=== PATIENT | female | born 1940 | race Caucasian/White ===

== ENCOUNTER → 2019-06-25 14:09 | Outpatient (CLI) | payer MEDICARE, SELFPAY ==
--- NOTE | 2019-06-25 | DI.US.S_ITS ---
PROCEDURE: US SOFT TISSUE HEAD AND NECK INDICATIONS: LEFT SUPRACLAVICULAR LUMPS TECHNIQUE: Real-time scanning was performed of the neck region of interest, with image documentation. COMPARISON: None. FINDINGS: Several prominent lymph nodes are seen within the area of clinical concern of the left neck, with the largest being 2.9 x 2.8 x 1.9 cm and 1.4 x 1.5 x 1.3 cm. Increased vascularity can be seen within these lymph nodes. Normal fatty ez are not seen. IMPRESSION: Abnormal lymph nodes are seen, which are highly worrisome for metastatic disease in a patient of this age (although differential diagnosis includes lymphoma). Please consider a dedicated soft tissue neck protocol CT with IV contrast for further evaluation (assuming that there is no contraindication). Dictated by: Axel Moore M.D. on 06/25/2019 at 16:19 Approved by: Axel Moore M.D. on 06/25/2019 at 16:20
--- NOTE | 2019-06-25 14:17 | DI.RAD.S_ITS ---
PROCEDURE: XR CHEST 2V INDICATIONS: cervical lymphadenopathy TECHNIQUE: 2 views of the chest were acquired. COMPARISON: None. FINDINGS: Surgical changes and devices: None. Lungs and pleura: Mild pulmonary hyperexpansion is evident with flattening of the diaphragms and increased lucency within the retrosternal clear space. No large effusion or pneumothorax is evident. There may be mild scarring within the right lung apex. There is groundglass attenuation within the right medial infrahilar region and diffusely throughout the right lung. No definite area of pulmonary consolidation is appreciated. Mediastinum: Mediastinal contours are normal. Heart size is normal. There may be mild aortic atherosclerosis. Bones and chest wall: No suspicious bony abnormalities. Mild degenerative changes of the spine are present. Soft tissues appear unremarkable. IMPRESSION: 1. Vague groundglass attenuation within the right lung is nonspecific and may represent atypical pneumonia or pulmonary edema. The need for better characterization utilizing CT of the chest may be determined clinically. 2. Pulmonary hyperexpansion suggestive of chronic obstructive pulmonary disease. Dictated by: David Obando M.D. on 06/25/2019 at 13:50 Approved by: David Obando M.D. on 06/25/2019 at 13:53
[2019-06-25 15:01] LABS: Add Manual Diff / Slide Review NO; Basophils Absolute Auto 100 /uL (0-100); Basophils Percent Auto 1.3 % (0-2); Eosinophils Absolute Auto 300 /uL (0-450); Hematocrit 39.7 % (36-46); Hemoglobin 13.2 g/dL (12.0-16.0); Lymphocytes Absolute Auto 1800 /uL (1100-4500); Lymphocytes Percent Auto 31.9 % (25-40); Mean Corpuscular HGB Conc 33.3 % (30-36); Mean Corpuscular Hemoglobin 31.1 PG (26-34); Mean Corpuscular Volume 93.4 fL (80-100); Monocytes Absolute Auto 600 /uL (0-900); Neutrophils Absolute Auto 2900 /uL (1500-7000); Neutrophils Percent Auto 50.8 % (50-75); Platelet Count 323 X10^3/uL (150-400); Red Blood Cell Count 4.25 X10^6/uL (4.0-5.2); Red Cell Distribution Width 14.1 % (11.6-14.8); White Blood Cell Count 5.7 X10^3/uL (4.5-11.0)
[2019-06-25 15:12] LABS: Alanine Aminotransferase 17 IU/L (9-52); Albumin 4.4 g/dL (3.5-5.0); Albumin Globulin Ratio 1.5 (1.0-2.8); Alkaline Phosphatase 79 U/L (38-126); Aspartate Aminotransferase 29 IU/L (14-36); BUN Creatinine Ratio 6.7 (6-22); Bilirubin Total 0.5 mg/dL (0.2-1.3); Blood Urea Nitrogen 4 mg/dL (7-17); Calcium 9.6 mg/dL (8.4-10.2); Carbon Dioxide 29 mmol/L (22-32); Chloride 104 mmol/L (98-107); Estimated Glomerular Filt Rate > 60.0 mL/min (>60); Globulin 2.9 g/dL (1.7-4.1); Glucose 93 mg/dL (80-110); HEMOLYSIS < 15 (0-50); Potassium 4.4 mmol/L (3.4-5.1); Sodium 142 mmol/L (137-145); Total Protein 7.3 g/dL (6.3-8.2)
== END ==
PROVIDERS: Family Provider Physician Assistant; PCP Physician Assistant; Visit Provider Nurse Practitioner Family
DX: R59.0 Localized enlarged lymph nodes (principal); F17.200 Nicotine dependence, unspecified, uncomplicated
CPT/HCPCS: 36415; 71046; 76536; 80053; 85025

== ENCOUNTER → 2019-06-25 16:53 | Outpatient (CLI) | payer MEDICARE, SELFPAY ==
--- NOTE | 2019-06-25 16:55 | DI.CT.S_ITS ---
PROCEDURE: CT SOFT TISSUE NECK W CON INDICATIONS: abnormal US, lymph nodes TECHNIQUE: After the administration of intravenous contrast, 3.0 mm axial sections acquired from the sella to the aortic arch. Additional oblique axial 3.0 mm sections acquired through the pharynx. 3 mm thick coronal and sagittal reformats were generated. For radiation dose reduction, the following was used: automated exposure control. COMPARISON: [facility], US, US SOFT TISSUE HEAD AND NECK, 06/25/2019, 14:34. FINDINGS: Image quality: Excellent. Lymph nodes: There are 2 adjacent left supraclavicular lymph nodes which are pathologically enlarged, measuring 18 mm short axis and 13 mm short axis. There is an adjacent left level IV cervical lymph node measuring 12 mm short axis. Vessels: Visualized vasculature appears patent. Neck spaces: The oropharynx, nasopharynx, and pharynx demonstrate no mucosal lesions. The vocal cords, false vocal cords, pyriform sinuses, epiglottis, vallecula, and tongue base all appear normal. Extramucosal spaces appear unremarkable. Glands: The parotid and submandibular glands appear normal. Thyroid gland is within normal limits. Miscellaneous: Visualized brain and orbits appear normal. Lung apices appear clear. Superficial soft tissues appear normal. Bones: No suspicious bony lesions. Right maxillary sinus retention cyst is present. Visualized sinuses and mastoids otherwise appear unremarkable. IMPRESSION: Multiple pathologically enlarged lymph nodes within the left neck, suggestive of lymphoma or metastatic disease. These lymph nodes would likely be amenable to percutaneous sampling under sonographic guidance. Dictated by: Ailin Redd M.D. on 06/25/2019 at 17:17 Approved by: Ailin Redd M.D. on 06/25/2019 at 17:21
--- NOTE | 2019-07-16 14:09 | ONC.MSW ---
Description: New Patient Navigation T/C Activity: Called pt to introduce myself as the SENIOR ENGINEERING TECHNICIAN/VERONICA, explain navigation services and relay that we have received her referral and are working on scheduling her. Confirmed that she is scheduled for a biopsy tomorrow, 07/17 with [facility]. She expresses no immediate needs or concerns. Explained that she will be hearing from our schedulers soon to confirm her consult appt day/time.
== END ==
PROVIDERS: Family Provider Physician Assistant; PCP Physician Assistant; Visit Provider Nurse Practitioner Family
DX: R59.0 Localized enlarged lymph nodes (principal); R93.89 Abnormal findings on diagnostic imaging of other specified body structures; F17.200 Nicotine dependence, unspecified, uncomplicated
CPT/HCPCS: 36415; 70491; 71046; 76536; 80053; 85025; Q9967

== ENCOUNTER → 2019-07-17 08:59 | Outpatient (CLI) | payer MEDICARE, SELFPAY ==
--- NOTE | 2019-07-17 | DI.US.S_ITS ---
PROCEDURE: US FINE NEEDLE ASPIRATION INDICATIONS: ENLARGED LEFT SUPRACLAVICULAR LYMPH NODE TECHNIQUE: The indications, alternatives, benefits, risks, and complications of the procedure were explained to the patient. Written informed consent was obtained and placed in the chart. The area of interest was examined sonographically and a site was chosen for ultrasound guided percutaneous sampling. The skin was prepared and draped in the usual fashion, and anesthetized with 1% lidocaine infiltrated from the skin down to the lesion. Multiple passes were then performed, with contents emptied into an appropriate pathology specimen container. A bandage was applied to the area of access at completion of the study. COMPARISON: None. FINDINGS: Location(s) of lesion(s) sampled: Left supraclavicular lymph node Nebo: 25 and 22 gauge hypodermic needles. Number of passes: 8 Medications: 1% lidocaine for local anaesthesia. Complications: None. IMPRESSION: Successful ultrasound-guided left supraclavicular lymph node fine needle aspiration, with cytology results pending. Dictated by: Domenico Dunn M.D. on 07/17/2019 at 12:18 Approved by: Domenico Dunn M.D. on 07/17/2019 at 12:18
--- NOTE | 2019-07-17 | PATH_ITS ---
Note [facility] Accession Number: [id number] TESTS RESULT FLAG UNITS REF RANGE LAB Clinician Provided Cytology Information No. of containers..01 ThinPrep Vial No. of containers..08 Previously Prepared Cytology Slide [A] 01 LEFT SUPRACLAVICULAR DIAGNOSIS: [A] 02 LEFT SUPRACLAVICULAR POSITIVE FOR MALIGNANT CELLS, CONSISTENT WITH ADENOCARCINOMA OF GASTROINTESTINAL/HEPATOBILIARY ORIGIN; SEE COMMENT. COMMENT: Cytological preparations and cell block slides show tight clusters of epithelioid cells with high nuclear:cytoplasmic volume ratios, in a background of small lymphocytes. The malignant cell clusters are positive for MIL, CK7, CK20, villin, CDX2 (rare, weak) and SATB2 (variable, weak) immunoreactivity, and are negative for immunohistochemical markers for lung (TTF-1, Napsin A), squamous (p40, CK5/6), and breast (KRISTAN-3, mammaglobin) phenotype; all control stains show appropriate activity. Please note that given alcohol fixation, false negative results cannot be excluded. This immunophenotype is consistent with adenocarcinoma of gastrointestinal or pancreatohepatobiliary origin. Correlation with clinical, imaging, and endoscopic findings remains the best method for determining the primary site. As part of routine manager quality systems, Dr. Galicia has reviewed this case and agrees with the interpretation above. The preliminary finding of adenocarcinoma was reported to Rosalba Tinajero via her MA, CJ, by Dr. Desir on 07/22/2019 at 4:35 PM. Pathologist ICD10: 02 C77.9 01 CONCERNED FOR METASTATIC CA, NO KNOWN PRIMARY 02 Dann Desir MD, PhD, Pathologist NPI- [id number] Wayne Moctezuma, Plant Mechanic ([facility]) 01 30 CC, PINK, HAZY /VDU 07/18/2019 0648 Local FLAG LEGEND: L-Low Normal,H-High Normal,LL-Alert Low,HH-Alert High <-Panic Low,>-Panic High,A-Abnormal,AA-Critical Abnormal Performed at: 01 =Z [facility] [address] [place] [address] [address], [place] [address] Jarad Sullivan MD, 02 [facility] [address] [address] Zabrina Galicai MD, Performed at: 01 [facility] [address], [place], [place] [id number] MD Jarad Sullivan MD Phone: [phone]
--- NOTE | 2019-07-23 11:32 | ONC.MSW ---
Description: Initial Navigation T/C Activity: So Dickey called this INFORMATION SYSTEMS PROFESSOR asking about why pt had not yet been scheduled, and that pt's mass has grown significantly since she provided us the referral. INFORMATION SYSTEMS PROFESSOR was able to work with schedulers to obtain an urgent appt. for this , 07/25 at 10:20, with a 10:00 check-in time. Called pt and provided this appt. info, as well as introduced myself as the Navigator and explained my role. Will plan to meet with her f/f prior to her appt.
== END ==
PROVIDERS: Family Provider Physician Assistant; PCP Physician Assistant; Visit Provider Nurse Practitioner Family
DX: C80.1 Malignant (primary) neoplasm, unspecified (principal); C77.3 Secondary and unspecified malignant neoplasm of axilla and upper limb lymph nodes
CPT/HCPCS: 10005

== ENCOUNTER → 2019-08-14 11:30 | Oncology outpatient (ONC) | payer MEDICARE, SELFPAY ==
[2019-07-25 11:04] VITALS: BP 132/81; PULSE 71; RESP 16; TEMP 36.9; O2SAT 97
--- NOTE | 2019-07-25 11:26 | P.CONONC_ITS ---
History of Present Illness - Data of Consult Patient: new to practice Consult date: 07/25/19 Requesting Physician: Estelle Dickey PA-C Primary Care Provider: Estelle Dickey PA-C - Consult Narrative Reason for consult: Left neck lymphnode metastatic cancer, GI origin. Narrative: Erica Nance is a 78 year old female. In late May or early Jun, her massage therapist noted tender lumps in her left neck. On o1. she went to see Rosalba REYES. She then underwent US Neck that showed abnormal lymph nodes highly worrisome for metastatic disease. CT showed multiple pathologically enlarged lymph nodes within the left neck, suggestive of lymphoma or metastatic. On 07/17/2019, she underwent US guided FNA of left supraclavicular node. The cytology was positive for malignant cells consistent with adenocarcinoma of gastrointestinal or hepatobiliary origin. She admits that she has had uncomfortable stomach. She said it hurts when eating. She denies nausea or vomiting. Her weight has been stable. She has left sided pain in her shoulder blade. She denies blood in the stool or blood in the urine. She denies any headache. CC: Kip Cutler MD Home Medications and Allergies Home Medications Medication Instructions Recorded Confirmed Type No Known Home Medications 06/25/19 06/25/19 History Allergies Allergy/AdvReac Type Severity Reaction Status Date / Time No Known Allergies Allergy Uncoded 07/23/19 07:52 Medical History - Medical, Surgical, Family History Medical History: Medical History (Last Updated 06/26/19 @ 15:01 by AMY Rios) Allergy Onset Date: 1949 Chlamydia Onset Date: 1969 Chronic sore throat Onset Date: 2017 Generalized headaches Onset Date: 1989 Genital warts Onset Date: 1969 Hepatitis B Onset Date: 1952 Herpes Onset Date: 1979 Hypothyroidism Onset Date: 1951 Measles Onset Date: 1943 Substance abuse Onset Date: 1961 Supraclavicular lymphadenopathy Onset Date: 05/2019 Surgical History: Surgical History Status post appendectomy Status post cholecystectomy - Social History Smoking Status: Never smoker Review of Systems - Patient Self-Reported Symptoms SR ears, nose, mouth, throat issues: Swollen glands All systems PM: reviewed and no additional remarkable complaints except as stated Exam Vital signs: Vital Signs Temp Pulse Resp BP Pulse Ox 07/25/19 11:04 98.4 F 71 16 132/81 97 Intake and Output 07/24/19 07/25/19 07/25/19 23:59 07:59 15:59 Other: Weight 52.9 kg Patient Weight 07/25/19 23:59 Weight 52.9 kg - Constitutional positive no acute distress, positive average body habitus, positive cooperative - Routine HEENT Exam Head: Present: normocephalic, atraumatic Eye: Present: EOMI, PERRL, normal accommodation. Absent: conjunctival icterus ENT: Present: mucous membranes moist - Routine Neck Exam Present: supple, lymphadenopathy (left level II and III matted lymph nodes. ). Absent: thyromegaly - Routine Chest/Breast/Axilla Exam Axillae: Absent: lymphadenopathy - Routine Respiratory Exam Present: Clear to auscultation bilaterally. Absent: wheezes - Routine Cardiovascular Exam Present: RRR, S1, S2. Absent: murmur, gallop, rubs - Routine Abdominal Exam Present: soft, tenderness (mild, epigastric). Absent: organomegaly - Routine Extremities Exam Absent: edema - Routine Neurological Exam Present: alert, oriented X3, CN II-XII intact. Absent: sensory deficit, motor deficit - Routine Psychiatric Exam Present: normal affect, normal thought process Results - Labs Laboratory Last Values WBC 4.7 X10^3/uL (4.5-11.0) 07/26/19 08:23 RBC 4.17 X10^6/uL (4.0-5.2) 07/26/19 08:23 Hgb 12.9 g/dL (12.0-16.0) 07/26/19 08:23 Hct 38.8 % (36-46) 07/26/19 08:23 MCV 93.0 fL (80-100) 07/26/19 08:23 MCH 30.9 PG (26-34) 07/26/19 08:23 MCHC 33.2 % (30-36) 07/26/19 08:23 RDW 13.9 % (11.6-14.8) 07/26/19 08:23 Plt Count 382 X10^3/uL (150-400) 07/26/19 08:23 Neut % (Auto) 65.7 % (50-75) 07/26/19 08:23 Lymph % (Auto) 18.6 % (25-40) L 07/26/19 08:23 Billings % (Auto) 9.2 % (3-14) 07/26/19 08:23 Eos % (Auto) 5.5 % (2-4) H 07/26/19 08:23 Baso % (Auto) 1.0 % (0-2) 07/26/19 08:23 Neut # (Auto) 3100 /uL (6936-1851) 07/26/19 08:23 Lymph # (Auto) 900 /uL (8031-4733) L 07/26/19 08:23 Billings # (Auto) 400 /uL (0-900) 07/26/19 08:23 Eos # (Auto) 300 /uL (0-450) 07/26/19 08:23 Baso # (Auto) 0 /uL (0-100) 07/26/19 08:23 Sodium 140 mmol/L (137-145) 07/26/19 08:23 Potassium 3.1 mmol/L (3.4-5.1) L 07/26/19 08:23 Chloride 99 mmol/L (98-107) 07/26/19 08:23 Carbon Dioxide 30 mmol/L (22-32) 07/26/19 08:23 BUN 8 mg/dL (7-17) 07/26/19 08:23 Creatinine 0.60 mg/dL (0.52-1.04) 07/26/19 08:23 Estimated GFR > 60.0 mL/min (>60) 07/26/19 08:23 BUN/Creatinine Ratio 13.3 (6-22) 07/26/19 08:23 Glucose 126 mg/dL (80-110) H 07/26/19 08:23 Calcium 9.6 mg/dL (8.4-10.2) 07/26/19 08:23 Total Bilirubin 0.4 mg/dL (0.2-1.3) 07/26/19 08:23 AST 27 IU/L (14-36) 07/26/19 08:23 ALT 11 IU/L (9-52) 07/26/19 08:23 Alkaline Phosphatase 62 U/L (38-126) 07/26/19 08:23 Lactate Dehydrogenase 489 U/L (313-618) 07/26/19 08:23 Total Protein 6.8 g/dL (6.3-8.2) 07/26/19 08:23 Albumin 4.0 g/dL (3.5-5.0) 07/26/19 08:23 Globulin 2.8 g/dL (1.7-4.1) 07/26/19 08:23 Albumin/Globulin Ratio 1.4 (1.0-2.8) 07/26/19 08:23 Carcinoembryonic Ag 36.7 ng/mL (0.1-3.0) H 07/26/19 08:23 CA 19-9 Antigen 239 U/mL (< 34) H 07/26/19 08:23 Assessment and Plan (1) Cancer of unknown origin Before I had time to explain to patient about what is going on, patient said that whatever the cancer is, she is determined that she would not want to do anything. She does not want to undergo chemotherapy especially. No other tests she would like to do. She said she has has a wonderful life. And there is no point of prolonging the inevitable. She would like to have a palliative care. I talked with her that I would agree with her, but at least we need to know what type of cancer we are dealing with. I talked with her that some of the cancers may be treatable and even curable with modern therapies. I explained to her that at present we have variety of different approaches including immunotherapy , targeted therapy or traditional chemotherapy. Patient finally agrees that she would like some minimal tests. Plan: 1. CBC, CMP, LDH, CEA, CA19-9, 2. PET CT 3. Guardian 360 4. RTC in 3 weeks
[2019-07-26 09:15] LABS: Add Manual Diff / Slide Review NO; Basophils Absolute Auto 0 /uL (0-100); Eosinophils Absolute Auto 300 /uL (0-450); Eosinophils Percent Auto 5.5 % (2-4); Hematocrit 38.8 % (36-46); Hemoglobin 12.9 g/dL (12.0-16.0); Lymphocytes Absolute Auto 900 /uL (1100-4500); Lymphocytes Percent Auto 18.6 % (25-40); Mean Corpuscular HGB Conc 33.2 % (30-36); Mean Corpuscular Hemoglobin 30.9 PG (26-34); Monocytes Absolute Auto 400 /uL (0-900); Monocytes Percent Auto 9.2 % (3-14); Neutrophils Absolute Auto 3100 /uL (1500-7000); Neutrophils Percent Auto 65.7 % (50-75); Platelet Count 382 X10^3/uL (150-400); Red Blood Cell Count 4.17 X10^6/uL (4.0-5.2); Red Cell Distribution Width 13.9 % (11.6-14.8); White Blood Cell Count 4.7 X10^3/uL (4.5-11.0)
[2019-07-26 09:36] LABS: Alanine Aminotransferase 11 IU/L (9-52); Albumin Globulin Ratio 1.4 (1.0-2.8); Alkaline Phosphatase 62 U/L (38-126); Aspartate Aminotransferase 27 IU/L (14-36); BUN Creatinine Ratio 13.3 (6-22); Bilirubin Total 0.4 mg/dL (0.2-1.3); Blood Urea Nitrogen 8 mg/dL (7-17); Calcium 9.6 mg/dL (8.4-10.2); Carbon Dioxide 30 mmol/L (22-32); Chloride 99 mmol/L (98-107); Estimated Glomerular Filt Rate > 60.0 mL/min (>60); Globulin 2.8 g/dL (1.7-4.1); Glucose 126 mg/dL (80-110); HEMOLYSIS < 15 (0-50); Lactate Dehydrogenase 489 U/L (313-618); Potassium 3.1 mmol/L (3.4-5.1); Sodium 140 mmol/L (137-145); Total Protein 6.8 g/dL (6.3-8.2)
[2019-07-26 10:07] LABS: Carcinoembryonic Antigen 36.7 ng/mL (0.1-3.0)
--- NOTE | 2019-07-29 09:04 | ONC.SCHED ---
Patient came in and is not willing to go through with PET scan, only interested in palliative care at this point, willing to give blood will purse 360 testing if beneficial. Jessica is aware and will talk to Dr. Cutler.
--- NOTE | 2019-07-29 16:19 | PC.NURSE ---
BIOPSY: Denise Dickey's office (PA) called to inform that per So Dickey that the biopsy of patient was done by radiology not by [facility] as previously told.
--- NOTE | 2019-07-30 12:26 | PC.NURSE ---
RE GUARDANT 360: This nurse called patient to schedule lab draw with us and explained that simple peripheral draw of 2 tubes would be done at [facility]. Also that she would need to sign an ABN which states that she could be charged up to $3500 but that the test company would first be calling her to let her know what financial assistance they could provide and what part she would be expected to pay, giving her the option to still cancel the test if she does not wish it after knowing exactly what she would be financially responsible for. Patient stated that at her visit with Dr. Cutler she had entertained the possibility of this test, but with further consideration she has decided that she does not want to do it ([facility] She told me that she also turned down the PET scan. FYI with this note to Dr. Cutler.
[2019-07-30 15:20] LABS: Cancer (Carbohydrate) Ag 19-9 239 U/mL (< 34)
--- NOTE | 2019-08-08 15:09 | ONC.SCHED ---
Left msg to get patient scheduled again for PET scan and to let her know per Jessica that there is an RX here for her to pickup in the box.
--- NOTE | 2019-08-12 11:36 | ONC.SCHED ---
left msg. for patient regarding her RX being here per Jessica.
--- NOTE | 2019-08-14 12:04 | PC.NURSE ---
Pt became light headed and weak during blood draw. Triage nurse asked for water and cold wash cloth. Pt transferred with help to chair in infusion room and was laid down. BP was low, and pt was conscience and talking during episode and was able to help us transfer her to chair. Dr. Quan was notified. No new orders. Pt VSS BP 118/61, P 50, O2 99. Pt resting and having orange juice, and stable.
--- NOTE | 2019-08-14 12:47 | PC.NURSE ---
Pt stable upon discharge
--- NOTE | 2019-08-26 15:54 | PC.NURSE ---
Addendum entered by Diana Beach 08/26/19 16:00: marine diesel mechanic was drawing the lab, Barry assisted the patient with Magui to the infusion chair. Addendum entered by Diana Beach 08/26/19 15:56: correction, RN who did the lab draw was Barry Garcia RN Original Note: patient was scheduled for a 'send-out' lab, guardant 360. patient had labs drawn by RNmagui at the cancer center. this is a late entry of that lab draw.
--- NOTE | 2019-08-28 11:36 | ONC.SCHED ---
Patient called and cancelled her apt. with Dr. Cutler stating also that she cancelled her PET scan. She said she doesn't want to go with Dr. Cutler's plan and didn't want to reschedule.
--- NOTE | 2019-09-02 11:09 | ONC.SCHED ---
Guardant 360 cancelled per patient request of no further testing or visits
--- NOTE | 2019-09-25 15:13 | ONC.MSW ---
Description: Hospice Referral Activity: [facility], pt is requesting to start hospice services. Faxed as requested.
--- NOTE | 2019-11-04 11:55 | ONC.MSW ---
*Sent bereavement card.
== END ==
PROVIDERS: Family Provider Physician Assistant; PCP Physician Assistant; Visit Provider Internal Medicine Hematology & Oncology
DX: C80.1 Malignant (primary) neoplasm, unspecified (principal); C77.3 Secondary and unspecified malignant neoplasm of axilla and upper limb lymph nodes
CPT/HCPCS: 36415; 80053; 82378; 83615; 85025; 86301; 99205; 99215